=== PATIENT | female | born 1995 | race Caucasian/White ===

== ENCOUNTER 2018-12-14 20:17 | Inpatient (IN) | payer BC ==
[2018-12-14] MEDS ORDERED: Promethazine HCl 25 MG/ML VIAL IM PRN (20:20)
[2018-12-14] MEDS ORDERED: Ondansetron PF 4 MG/2 ML Vial IVP PRN (20:20)
[2018-12-14] MEDS ORDERED: Zolpidem Tartrate 5 MG TAB PO PRN (20:20)
[2018-12-14] MEDS ORDERED: Docusate 100 MG CAP PO PRN (20:20)
[2018-12-14] MEDS ORDERED: Butorphanol Tartrate 1 MG/ML VIAL SLOW IVP PRN (20:20)
[2018-12-14] MEDS ORDERED: Diphenoxylate HCl/Atropine Tablet PO PRN ×2 (20:20)
[2018-12-14] MEDS ORDERED: HYDROcodone/Acetaminophen 5/325 mg Tablet PO PRN ×2 (20:20)
[2018-12-14] MEDS ORDERED: Acetaminophen 500 MG TAB PO PRN (20:20)
[2018-12-14] MEDS ORDERED: Misoprostol 200 MCG TAB PR PRN (20:20)
[2018-12-14] MEDS ORDERED: NS w/ Oxytocin 10 units 500 ML IV SCH ×2 (20:20)
[2018-12-14] MEDS ORDERED: Lidocaine 1% (PF) 30 ML VIAL SC PRN (20:20)
[2018-12-14] MEDS ORDERED: Ibuprofen 800 MG TAB PO PRN (20:20)
[2018-12-14] MEDS ORDERED: NS / Oxytocin 40 units/1000ml 1,000 ML IV PRN (20:20)
[2018-12-14 20:50] VITALS: BMI 25.8
[2018-12-14] MEDS ORDERED: Penicillin G Potassium 5 MILL.UNITS in Sodium Chloride 0.9% 100 ML IVPB SCH (21:15)
[2018-12-14] MEDS: Misoprostol 100 MCG TAB VAG SCH (21:20)
[2018-12-14 21:22] LABS: Hemoglobin 12.3 g/dL (12.0-16.0); Mean Corpuscular HGB CONC 34.5 g/dL (32.0-36.0); Mean Corpuscular Hemoglobin 29.5 pg (27.0-31.0); Mean Corpuscular Volume 85.5 fL (78.0-98.0); Mean Platelet Volume 8.2 fL (7.4-10.4); Platelet Count 250 thou/uL (130-400); RBC Distribution Width 11.5 % (11.5-14.5); Red Blood Cell (RBC) Count 4.16 mill/uL (4.20-5.40); White Blood Cell (WBC) Count 16.7 thou/uL (4.8-10.8)
[2018-12-14 22:34] LABS: Syphilis Antibody Nonreactive (Nonreactive); Syphilis Antibody Index 0.04 S/CO (<1.00 Non-Reactive)
[2018-12-14 22:36] LABS: HBSAg Index 0.24 S/CO (0-0.99); Hep B Surf Ag Non-Reactive S/CO (NonReactive)
[2018-12-15] MEDS: Misoprostol 100 MCG TAB VAG SCH ×3 (00:27→13:53)
[2018-12-15] MEDS: Lactated Ringer's 1,000 ML IV SCH ×4 (04:01→13:51)
[2018-12-15] MEDS: Penicillin G 2.5 MILL.units 2.5 MILL.UNITS in Premix Bag 1 BAG IVPB SCH ×3 (04:29→13:24)
[2018-12-15] MEDS ORDERED: Fentanyl 4 mcg/Bup 0.1% Cadd 100 ML ONE (08:58)
[2018-12-15] MEDS ORDERED: Acetaminophen 325 MG TAB PO PRN (09:56)
[2018-12-15] MEDS ORDERED: Ondansetron PF 4 MG/2 ML Vial IVP PRN ×2 (09:56→16:06)
[2018-12-15] MEDS ORDERED: Naloxone HCl 0.4 mg/ml Vial IVP PRN ×2 (09:56)
[2018-12-15] MEDS ORDERED: ePHEDrine/0.9% NaCl/PF SYRINGE 50 mg/10 ml SLOW IVP PRN (09:56)
[2018-12-15] MEDS ORDERED: Eucerin (Mineral Oil/Petrolatum,White) 30 gm Jar TOP PRN (09:56)
[2018-12-15] MEDS ORDERED: Lactated Ringer's 500 ML IV PRN (09:56)
[2018-12-15] MEDS ORDERED: Promethazine HCl 25 MG/ML VIAL IM PRN (09:56)
[2018-12-15] MEDS ORDERED: diphenhydrAMINE 50 MG/ML VIAL IVP PRN (09:56)
[2018-12-15] MEDS ORDERED: Fentanyl 4 mcg/Bupivacaine 0.1% Cassette 100 ML EPIDURAL SCH (10:00)
[2018-12-15] MEDS ORDERED: Communication Order-Pharmacy FS SCH (10:00)
[2018-12-15] MEDS ORDERED: Bupivacaine 0.25% HCL 30 ML VIAL ONE (11:11)
[2018-12-15] MEDS ORDERED: Acetaminophen/Codeine 30-300mg Tablet PO PRN ×2 (16:06)
[2018-12-15] MEDS ORDERED: Misoprostol 200 MCG TAB VAG PRN (16:06)
[2018-12-15] MEDS ORDERED: Lanolin Ointment 7 GM TUBE TOP PRN (16:06)
[2018-12-15] MEDS ORDERED: diphenhydrAMINE 25 MG CAP PO PRN (16:06)
[2018-12-15] MEDS ORDERED: Milk Of Magnesia 30 ML UDCUP PO PRN (16:06)
[2018-12-15] MEDS ORDERED: Zolpidem Tartrate 5 MG TAB PO PRN (16:06)
[2018-12-15] MEDS ORDERED: Preparation H Ointment 28 GM TUBE PR PRN (16:06)
[2018-12-15] MEDS ORDERED: Benzocaine-Menthol 82.5 ML CAN TOP PRN (16:06)
[2018-12-15] MEDS ORDERED: Bisacodyl 10 MG SUPP PR PRN (16:06)
[2018-12-15] MEDS ORDERED: Adacel (T-DAP) 0.5 ML SYRINGE IM ONE (16:06)
[2018-12-15] MEDS ORDERED: NS / Oxytocin 40 units/1000ml 1,000 ML IV SCH (16:15)
[2018-12-15] MEDS: Ferrous Sulfate 325 MG TAB PO SCH (21:22)
[2018-12-15] MEDS: Ibuprofen 800 MG TAB PO SCH (21:22)
[2018-12-15] MEDS: Docusate Calcium (SURFAK) 240 MG CAP PO SCH (21:36)
[2018-12-16] MEDS: Ibuprofen 800 MG TAB PO SCH ×3 (01:59→18:26)
[2018-12-16 07:59] LABS: Hemoglobin 11.7 g/dL (12.0-16.0); Mean Corpuscular HGB CONC 33.6 g/dL (32.0-36.0); Mean Corpuscular Hemoglobin 28.7 pg (27.0-31.0); Mean Corpuscular Volume 85.5 fL (78.0-98.0); Mean Platelet Volume 8.1 fL (7.4-10.4); Platelet Count 251 thou/uL (130-400); RBC Distribution Width 11.8 % (11.5-14.5); Red Blood Cell (RBC) Count 4.06 mill/uL (4.20-5.40); White Blood Cell (WBC) Count 22.5 thou/uL (4.8-10.8)
[2018-12-16] MEDS: Penicillin G 2.5 MILL.units 2.5 MILL.UNITS in Premix Bag 1 BAG IVPB SCH ×2 (08:06→08:07)
[2018-12-16] MEDS: Misoprostol 100 MCG TAB VAG SCH (08:07)
[2018-12-16] MEDS: Ferrous Sulfate 325 MG TAB PO SCH ×2 (09:03→16:22)
[2018-12-16] MEDS: Docusate Calcium (SURFAK) 240 MG CAP PO SCH ×2 (09:37→21:46)
[2018-12-16] MEDS: Prenatal Vitamin 1 TAB PO SCH (09:45)
[2018-12-16] MEDS ORDERED: Witch Hazel-Glycerin 1 EACH JAR TOP PRN (10:13)
[2018-12-17] MEDS: Ibuprofen 800 MG TAB PO SCH ×2 (02:11→09:28)
[2018-12-17 07:53] VITALS: BP 113/52; TEMP 98.2
[2018-12-17] MEDS: Ferrous Sulfate 325 MG TAB PO SCH (09:02)
[2018-12-17] MEDS: Prenatal Vitamin 1 TAB PO SCH (09:27)
[2018-12-17] MEDS: Docusate Calcium (SURFAK) 240 MG CAP PO SCH (09:27)
== END 2018-12-17 15:15 | disposition home or self-care (01) | DRG 807 ==
LOC: L&D 20:17 → 3SW 12-15 19:37
PROVIDERS: ADMIT Obstetrics & Gynecology; ATTEND Obstetrics & Gynecology
PROC: 10D07Z6 Extraction of Products of Conception, Vacuum, Via Natural or Artificial Opening (ICD-10-PCS; principal; 2018-12-15)
PROC: 10907ZC Drainage of Amniotic Fluid, Therapeutic from Products of Conception, Via Natural or Artificial Opening (ICD-10-PCS; 2018-12-15)
PROC: 0W8NXZZ Division of Female Perineum, External Approach (ICD-10-PCS; 2018-12-15)
DX: O99.824 Streptococcus B carrier state complicating childbirth (principal); Z37.0 Single live birth; Z3A.39 39 weeks gestation of pregnancy
CPT/HCPCS: 36415; 51702; 85027; 86780; 86850; 86900; 86901; 87340; J2001; J2540; J7050; S0020

== ENCOUNTER 2020-09-01 08:14 | Outpatient (CLI) | payer OTHER ==
[2020-09-01 19:31] LABS: SARS-CoV-2 MS2 Positive; SARS-CoV-2 N Gene Negative; SARS-CoV-2 S Gene Negative; SARS-CoV-2 by NAA Not Detected (NotDetected); SARS-CoV-2 orf1ab Negative
== END 2020-09-01 08:15 | disposition home or self-care (01) ==
LOC: LABBT 08:14
PROVIDERS: ATTEND Obstetrics & Gynecology
DX: Z01.812 Encounter for preprocedural laboratory examination (principal); Z20.828 Contact with and (suspected) exposure to other viral communicable diseases
CPT/HCPCS: 87635; U0003

== ENCOUNTER 2020-09-02 08:47 | Inpatient (IN) | payer BC, SELFPAY ==
[~2020-09-02 08:47] MED LIST: Acetaminophen 500 MG TAB PO PRN; Butorphanol Tartrate 1 MG/ML VIAL SLOW IVP PRN; Docusate 100 MG CAP PO PRN; HYDROcodone/Acetaminophen 5/325 mg Tablet PO PRN; Ibuprofen 800 MG TAB PO PRN; Lidocaine 1% (PF) 30 ML VIAL SC PRN; Misoprostol 200 MCG TAB PR PRN; NS / Oxytocin 40 units/1000ml 1,000 ML IV PRN; Ondansetron PF 4 MG/2 ML Vial IVP PRN; Promethazine HCl 25 MG/ML VIAL IM PRN; hydrALAZINE 20 MG/ML VIAL SLOW IVP PRN
[2020-09-02] MEDS ORDERED: Lactated Ringer's 1,000 ML IV SCH (09:00)
[2020-09-02 09:44] VITALS: BMI 25.8
[2020-09-02 10:05] LABS: Hemoglobin 12.3 g/dL (12.0-16.0); Mean Corpuscular HGB CONC 33.8 g/dL (32.0-36.0); Mean Corpuscular Hemoglobin 29.7 pg (27.0-31.0); Mean Corpuscular Volume 87.8 fL (78.0-98.0); Mean Platelet Volume 7.9 fL (7.4-10.4); Platelet Count 238 thou/uL (130-400); RBC Distribution Width 11.3 % (11.5-14.5); Red Blood Cell (RBC) Count 4.15 mill/uL (4.20-5.40); White Blood Cell (WBC) Count 18.8 thou/uL (4.8-10.8)
[2020-09-02] MEDS ORDERED: Bupivacaine 0.5% 20 ML, fentaNYL Citrate/PF 400 MCG in Sodium Chloride 0.9% 72 ML EPIDURAL SCH (10:30)
[2020-09-02] MEDS ORDERED: DISCONTINUE ALL PREVIOUS NARCOTICS FS SCH (10:30)
[2020-09-02 10:58] LABS: HBSAg Index 0.15 S/CO (0-0.99); Hep B Surf Ag Non-Reactive S/CO (NonReactive); Syphilis Antibody Nonreactive (Nonreactive); Syphilis Antibody Index 0.03 S/CO (<1.00 Non-Reactive)
[2020-09-02] MEDS ORDERED: Bupivacaine 0.25% HCL 30 ML VIAL ONE (12:49)
[2020-09-02] MEDS ORDERED: diphenhydrAMINE 25 MG CAP PO PRN (14:17)
[2020-09-02] MEDS ORDERED: Misoprostol 200 MCG TAB VAG PRN (14:17)
[2020-09-02] MEDS ORDERED: Ondansetron PF 4 MG/2 ML Vial IVP PRN (14:17)
[2020-09-02] MEDS ORDERED: Benzocaine-Menthol 82.5 ML CAN TOP PRN (14:17)
[2020-09-02] MEDS ORDERED: Zolpidem Tartrate 5 MG TAB PO PRN (14:17)
[2020-09-02] MEDS ORDERED: Bisacodyl 10 MG SUPP PR PRN (14:17)
[2020-09-02] MEDS ORDERED: HYDROcodone/Acetaminophen 5/325 mg Tablet PO PRN ×2 (14:17)
[2020-09-02] MEDS ORDERED: Milk Of Magnesia 30 ML UDCUP PO PRN (14:17)
[2020-09-02] MEDS ORDERED: Preparation H Ointment 28 GM TUBE PR PRN (14:17)
[2020-09-02] MEDS ORDERED: hydrALAZINE 20 MG/ML VIAL SLOW IVP PRN (14:17)
[2020-09-02] MEDS ORDERED: Lanolin Ointment 7 GM TUBE TOP PRN (14:17)
[2020-09-02] MEDS ORDERED: NS / Oxytocin 40 units/1000ml 1,000 ML IV SCH (14:30)
[2020-09-02] MEDS: Ibuprofen 800 MG TAB PO SCH (17:41)
[2020-09-02] MEDS: Ferrous Sulfate 325 MG TAB PO SCH (18:00)
[2020-09-02] MEDS: Docusate Calcium (SURFAK) 240 MG CAP PO SCH (21:52)
[2020-09-03] MEDS: Ibuprofen 800 MG TAB PO SCH ×3 (00:01→16:17)
[2020-09-03 07:03] LABS: Hemoglobin 11.1 g/dL (12.0-16.0); Mean Corpuscular HGB CONC 34.7 g/dL (32.0-36.0); Mean Corpuscular Hemoglobin 30.8 pg (27.0-31.0); Mean Corpuscular Volume 88.7 fL (78.0-98.0); Platelet Count 194 thou/uL (130-400); RBC Distribution Width 11.1 % (11.5-14.5); White Blood Cell (WBC) Count 22.2 thou/uL (4.8-10.8)
[2020-09-03] MEDS: Ferrous Sulfate 325 MG TAB PO SCH (08:07)
[2020-09-03] MEDS: Docusate Calcium (SURFAK) 240 MG CAP PO SCH (08:12)
[2020-09-03] MEDS ORDERED: Prenatal Vitamin 1 TAB PO SCH (09:00)
[2020-09-03 13:34] VITALS: BP 120/63; TEMP 98.3
[2020-09-03] MEDS ORDERED: Adacel (T-DAP) 0.5 ML SYRINGE IM ONE (14:17)
== END 2020-09-03 16:30 | disposition home or self-care (01) | DRG 806 ==
LOC: L&D 08:47 → 3SW 16:49
PROVIDERS: ADMIT Obstetrics & Gynecology; ATTEND Obstetrics & Gynecology
PROC: 10E0XZZ Delivery of Products of Conception, External Approach (ICD-10-PCS; principal; 2020-09-02)
PROC: 0KQM0ZZ Repair Perineum Muscle, Open Approach (ICD-10-PCS; 2020-09-02)
DX: O70.1 Second degree perineal laceration during delivery (principal); O72.1 Other immediate postpartum hemorrhage; Z37.0 Single live birth; Z3A.38 38 weeks gestation of pregnancy; Z90.89 Acquired absence of other organs
CPT/HCPCS: 36415; 51702; 85027; 86780; 86850; 86900; 86901; 87340; J3010; J3490; S0020

== ENCOUNTER 2021-02-24 07:05 | Outpatient (CLI) | payer BC | END 2021-02-24 07:06 | disposition home or self-care (01) | LOC: BICRAD 07:05 | PROVIDERS: ATTEND Nurse Practitioner Family | DX: Z97.5 Presence of (intrauterine) contraceptive device (principal) | CPT/HCPCS: 74018 ==